=== PATIENT | female | born 1975 | race Caucasian/White ===

== ENCOUNTER 2022-08-19 11:02 | Outpatient (CLI) | payer BC, SELFPAY ==
[2022-08-19 11:20] LABS: Hematocrit 39.7 % (33.0-51.0); Hemoglobin* 13.3 gm/dL (12.0-16.0); Mean Corpuscular HGB Conc 34 gm/dL (32-36); Mean Corpuscular Hemoglobin 33 pg (26-34); Mean Corpuscular Volume 99 fL (80-100); Platelet Count* 195 K/uL (140-440); Red Blood Count 4.03 m/uL (4.00-5.20); White Blood Count* 4.52 K/uL (4.50-11.00)
[2022-08-19 11:21] LABS: Slide Review Reflex No
[2022-08-19 21:44] LABS: Albumin* 4.4 g/dL (3.3-5.0); Chloride* 105 mmol/L (96-114); Sodium* 136 mmol/L (135-149)
[2022-08-19 21:45] LABS: Potassium* 4.5 mmol/L (3.6-5.1)
[2022-08-19 21:47] LABS: Alkaline Phosphatase* 43 U/L (40-150); Aspartate Amino Transferase* 19 U/L (12-35); Bilirubin Total* 0.8 mg/dL (0.1-1.5); Blood Urea Nitrogen* 18 mg/dL (5-24); Carbon Dioxide* 25 mmol/L (20-32); Creatinine* 0.8 mg/dL (0.5-1.5); Estimated Glomerular Filt Rate 90 ml/min; Total Protein* 6.8 g/dL (6.0-8.3)
[2022-08-19 21:48] LABS: Cholesterol* 185 mg/dL (90-199); HDL Cholesterol* 64 mg/dL (>=50); LDL Cholesterol Calculated 113 mg/dL (<100); Triglycerides* 39 mg/dL (40-149)
[2022-08-19 21:48] LABS: Alanine Aminotransferase* 12 U/L (4-35); Calcium* 9.3 mg/dL (8.4-10.6); Glucose* 88 mg/dL (60-115)
== END 2022-08-19 11:03 | disposition home or self-care (01) ==
LOC: FRMREF 11:03
PROVIDERS: PCP Physician Assistant Medical; Visit Provider Physician Assistant Medical
DX: Z00.00 Encounter for general adult medical examination without abnormal findings (principal); E03.9 Hypothyroidism, unspecified; Z13.6 Encounter for screening for cardiovascular disorders
CPT/HCPCS: 80053; 80061; 84443; 85027

== ENCOUNTER 2022-12-30 13:58 | Outpatient (CLI) | payer BC, SELFPAY ==
--- NOTE | 2022-12-30 14:00 | CRLHL7_ITS ---
For Patients: As a result of the Century Cures Act, medical imaging exams and procedure reports are released immediately into your electronic medical record. You may view this report before your referring provider. If you have questions, please contact your health care provider. BILATERAL SCREENING MAMMOGRAM WITH COMPUTER-AIDED DETECTION AND TOMOSYNTHESIS TECHNIQUE: CC and MLO views were obtained. These mammographic images have been obtained using full-field digital technique. These mammographic images were interpreted with the benefit of computer-aided detection. Breast Tomosynthesis was used in this interpretation. COMPARISON FILM: 03/12/21, 12/21/18, 09/13/13. FINDINGS: There are scattered areas of fibroglandular density IMPRESSION: There is no radiographic evidence for malignancy. ASSESSMENT: BI-RADS Category 1: Negative RECOMMENDATION: Routine screening mammogram in 1 year. A lay language report of this examination will be provided to the patient. Santos Pierce M.D. Diagnostic/Nuclear Medicine Radiologist [email or web address] KAMI/Dictated by: Santos Pierce MD @ 01/02/2023 8:33:00 AM (Electronically Signed)
== END 2022-12-30 13:59 | disposition home or self-care (01) ==
LOC: MAMMO 13:59
PROVIDERS: PCP Physician Assistant Medical; Visit Provider Physician Assistant Medical
DX: Z12.31 Encounter for screening mammogram for malignant neoplasm of breast (principal)
CPT/HCPCS: 77063; 77067

== ENCOUNTER 2023-01-06 10:32 | Outpatient (CLI) | payer BC, SELFPAY | END 2023-01-06 10:33 | disposition home or self-care (01) | LOC: NFLDREF 01-14 07:28 | PROVIDERS: PCP Physician Assistant Medical; Referring Provider Physician Assistant Medical; Visit Provider Physician Assistant Medical | DX: E03.9 Hypothyroidism, unspecified (principal) | CPT/HCPCS: 84443 ==

== ENCOUNTER 2025-04-18 09:37 | Outpatient (CLI) | payer OTHER, SELFPAY | END 2025-04-18 09:38 | disposition home or self-care (01) | PROVIDERS: Visit Provider Nurse Practitioner Family | DX: E03.9 Hypothyroidism, unspecified (principal); N95.1 Menopausal and female climacteric states | CPT/HCPCS: 84439; 84443 ==

== ENCOUNTER 2025-09-04 13:27 | Outpatient (CLI) | payer BC, SELFPAY ==
--- NOTE | 2025-09-04 13:40 | CRLHL7_ITS ---
For Patients: As a result of the Cures Act, medical imaging exams and procedure reports are released immediately into your electronic medical record. You may view this report before your referring provider. If you have questions, please contact your health care provider. BILATERAL DIGITAL SCREENING MAMMOGRAM WITH COMPUTER-AIDED DETECTION AND TOMOSYNTHESIS CLINICAL HISTORY: Routine screening exam. COMPARISON: 12/30/2022, 03/12/2021, 12/21/2018. TECHNIQUE: Digital mammogram in CC and MLO projections including computer-aided detection (CAD). Tomosynthesis was used in this interpretation. BREAST COMPOSITION: There are scattered areas of fibroglandular density. FINDINGS: RIGHT Breast: No suspicious findings LEFT Breast: Focal asymmetric density lateral breast 10 cm from the nipple. IMPRESSION: LEFT breast asymmetry/mass. RECOMMENDATIONS: Additional mammographic views of the LEFT breast including 3D spot compression CC/MLO. LEFT breast ultrasound may also be required. The [facility] will contact the patient. A lay language report of this examination will be provided to the patient. BI-RADS Category 0: Incomplete: Need Additional Imaging Evaluation Dictated by Donnie Barone MD @ 09/05/2025 8:40:51 AM YO/marleny DW/Dictated by: Donnie Barone MD @ 09/05/2025 8:40:00 AM (Electronically Signed)
== END 2025-09-04 13:28 | disposition home or self-care (01) ==
LOC: MAMMO 13:28
PROVIDERS: PCP Nurse Practitioner Family; Visit Provider Nurse Practitioner Family
DX: Z12.31 Encounter for screening mammogram for malignant neoplasm of breast (principal); N63.20 Unspecified lump in the left breast, unspecified quadrant
CPT/HCPCS: 77063; 77067

== ENCOUNTER 2025-09-19 08:56 | Outpatient (CLI) | payer BC, SELFPAY ==
--- NOTE | 2025-09-19 08:45 | CRLHL7_ITS ---
For Patients: As a result of the Cures Act, medical imaging exams and procedure reports are released immediately into your electronic medical record. You may view this report before your referring provider. If you have questions, please contact your health care provider. DIGITAL DIAGNOSTIC LEFT MAMMOGRAM USING TOMOSYNTHESIS LEFT BREAST ULTRASOUND CLINICAL HISTORY: LEFT breast mass/asymmetry. COMPARISON: 09/04/2025. TECHNIQUE: Digital LEFT mammogram in two projections. Tomosynthesis was used in this interpretation. Real-time ultrasound imaging of LEFT breast with imaging documentation. BREAST COMPOSITION: There are scattered areas of fibroglandular density. FINDINGS: 3D spot compression CC/MLO LEFT breast mammogram images submitted. Persistent nodular density is present within the lateral LEFT breast without architectural distortion or suspicious calcifications. No adenopathy. No abnormal vascularity. Targeted LEFT breast ultrasound performed at 3 o`clock 8 cm from the nipple. In this location there is a simple anechoic cyst which measures 9 x 5 x 7 mm. IMPRESSION: Benign cyst LEFT breast 3 o`clock 8 cm from the nipple measuring 9 mm. No evidence of malignancy. RECOMMENDATIONS: Routine screening mammography. A lay language report of this examination will be provided to the patient. BI-RADS Category 2: Benign Dictated by Donnie Barone MD @ 09/19/2025 9:42:50 AM jj/Dictated by: Donnie Barone MD @ 09/19/2025 9:42:00 AM (Electronically Signed)
--- NOTE | 2025-09-19 09:15 | CRLHL7_ITS ---
For Patients: As a result of the Cures Act, medical imaging exams and procedure reports are released immediately into your electronic medical record. You may view this report before your referring provider. If you have questions, please contact your health care provider. SEE DIGITAL DIAGNOSTIC LEFT MAMMOGRAM PERFORMED SAME DAY CRL:ada caballero/Dictated by: Donnie Barone MD @ 09/19/2025 9:42:00 AM (Electronically Signed)
== END 2025-09-19 08:57 | disposition home or self-care (01) ==
LOC: MAMMO 08:56
PROVIDERS: PCP Nurse Practitioner Family; Visit Provider Nurse Practitioner Family
DX: N63.20 Unspecified lump in the left breast, unspecified quadrant (principal); N60.02 Solitary cyst of left breast; R92.8 Other abnormal and inconclusive findings on diagnostic imaging of breast
CPT/HCPCS: 76642; 77065; G0279

== ENCOUNTER 2025-10-10 13:53 | Outpatient (CLI) | payer BC, SELFPAY | END 2025-10-10 13:54 | disposition home or self-care (01) | LOC: NFLDREF 10-16 15:09 | PROVIDERS: PCP Nurse Practitioner Family; Referring Provider Nurse Practitioner Family; Visit Provider Nurse Practitioner Family | DX: E03.9 Hypothyroidism, unspecified (principal) | CPT/HCPCS: 84439; 84443 ==